=== PATIENT | female | born 1970 | race African-American/Black ===

== ENCOUNTER 2021-07-15 09:41 | Emergency (ER) | payer OTHER ==
[~2021-07-15] VITALS: Ht 154.9 cm; Wt 99.5 kg
[2021-07-15 09:53] VITALS: BP 130/90
--- NOTE | 2021-07-15 10:03 | NUR ---
Pt ambulated to bed 05.
--- NOTE | 2021-07-15 10:15 | NUR ---
50 Y/O FEMALE C/O VAGINAL DISCOMFORT, VAGINAL ITCHINESS, WHITE DISCHARGE, STATES HAS "GARBAGE" ODOR X4 DAYS. PT ALSO C/O RLQ PAIN, WITH DIARRHEA. DENIES NAUSEA/VOMITING. PT HAD UNPROTECTED SEX 07/12. PT ALSO STATES SHE IS SWEATING, CHILLS, WITH HEADACHE. 8/10 BURNING PAIN. PMH: HTN, ASTHMA, CHF NKDA
[2021-07-15] MEDS ORDERED: DOXYCYCLINE 100 MG CAP PO STA (10:58)
[2021-07-15] MEDS ORDERED: cefTRIAXone 500 MG VIAL IM ONE (11:00)
[2021-07-15] MEDS ORDERED: LIDOCAINE MPF 1% 5 ML ONE (11:14)
[2021-07-15] MEDS ORDERED: LIDOCAINE MPF 1% 10 MG/ML VIAL IM ONE (11:15)
--- NOTE | 2021-07-15 11:43 | NUR ---
Pelvic exam performed by DR MANZANO with FEMALE RN EDWARD YIN at bedside for entire examination. Patient tolerated procedure WELL. Patient assisted to position of comfort after examination. Wet mount sample collected and sent to lab.
[2021-07-15] MEDS ORDERED: DOXY-690 PO (12:40)
[2021-07-15 12:52] VITALS: BP 127/85
--- NOTE | 2021-07-15 12:52 | NUR ---
Patient discharged with v/s stable. Written and verbal after care instructions given and explained. Patient alert, oriented and verbalized understanding of instructions. Ambulatory with steady gait. All questions addressed prior to discharge. ID band removed. Patient advised to follow up with PMD. Rx of VIBRAMYCIN given. Patient educated on indication of medication including possible reaction and side effects. Opportunity to ask questions provided and answered.
== END 2021-07-15 12:52 | disposition home or self-care (01) ==
LOC: MED 09:41
DX: N89.8 Other specified noninflammatory disorders of vagina (principal); J45.909 Unspecified asthma, uncomplicated; I11.0 Hypertensive heart disease with heart failure; I50.9 Heart failure, unspecified; Z79.899 Other long term (current) drug therapy; Z98.890 Other specified postprocedural states
CPT/HCPCS: 81002; 81025; 87210; 96372; 99284; J0696; J2001

== ENCOUNTER 2023-04-10 11:03 | Day surgery (SDC) | payer OTHER ==
[~2023-04-10] VITALS: Ht 157.5 cm; Wt 99.3 kg
[~2023-04-10 11:03] MED LIST: DOXY-690 PO
[2023-04-10] MEDS ORDERED: fentaNYL citrate 0.05 MG/ML VIAL ONE (14:15)
[2023-04-10] MEDS ORDERED: LIDOCAINE 2% 100 MG/5 ML UJET TP ONE ×2 (14:15→15:10)
[2023-04-10] MEDS ORDERED: fentaNYL citrate 0.05 MG/ML VIAL IVP ONE (15:10)
== END 2023-04-10 15:15 | disposition home or self-care (01) ==
LOC: MDS 11:03 → MMU 11:06 → MDS 15:15
PROVIDERS: ATTEND Internal Medicine Gastroenterology
DX: Z12.11 Encounter for screening for malignant neoplasm of colon (principal); Z80.0 Family history of malignant neoplasm of digestive organs; I10 Essential (primary) hypertension; E78.5 Hyperlipidemia, unspecified; E66.9 Obesity, unspecified; F41.9 Anxiety disorder, unspecified; J45.909 Unspecified asthma, uncomplicated; F32.A Depression, unspecified; Z79.82 Long term (current) use of aspirin; Z68.41 Body mass index [BMI] 40.0-44.9, adult; Z79.899 Other long term (current) drug therapy
CPT/HCPCS: 45378; J3010